=== PATIENT | male | born 1985 | race Caucasian/White ===

== ENCOUNTER 2022-07-28 08:32 | Emergency (ER) | payer MEDICAID ==
[~2022-07-28] VITALS: Ht 167.6 cm; Wt 79.8 kg
--- NOTE | 2022-07-28 08:55 | NUR ---
Pt arrived with c/o chest pain, 01/23 x 4D. Denies n/v, headache. Seen by Dr. Stewart for MSE.
[2022-07-28 08:59] LABS: HEMATOCRIT 47.7 % (36.7-47.1); MEAN CORPUSCULAR HEMOGLOBIN 28.9 uug (23.8-33.4); MEAN CORPUSCULAR VOLUME 86.1 fL (73.0-96.2); PLATELET COUNT (AUTO) 217 K/uL (152-348)
[2022-07-28 09:08] LABS: CARBON DIOXIDE 28 mmol/L (21-32); CHLORIDE 104 mmol/L (98-107); CREATININE 0.7 mg/dL (0.6-1.3); GLUCOSE 115 mg/dL (74-106); POTASSIUM 4.3 mmol/L (3.5-5.1); UREA NITROGEN, BLOOD 16 mg/dL (7-18)
[2022-07-28 09:20] LABS: ALANINE AMINOTRANSFERASE 56 U/L (16-63); ALKALINE PHOSPHATASE 122 U/L (50-136); ASPARTATE AMINOTRANSFERASE 20 U/L (15-37); BILIRUBIN,TOTAL 0.3 mg/dL (0.2-1.0)
--- NOTE | 2022-07-28 09:35 | NUR ---
Called [facility] for [employer]. Gave us phone #[phone] to call the Cardiology, Dr. Koshkaryan. ALEXANDRE made aware.
[2022-07-28] MEDS ORDERED: IBUPROFEN 400 MG TABLET ONE (10:29)
[2022-07-28] MEDS ORDERED: IBUPROFEN 400 MG TABLET PO ONE (10:30)
[2022-07-28] MEDS ORDERED: IBUP-1953 PO (12:21)
[2022-07-28] MEDS ORDERED: KETOROLAC TROMETHAMINE 30 MG INJ ONE (12:21)
[2022-07-28] MEDS ORDERED: KETOROLAC TROMETHAMINE 30 MG INJ IM ONE (12:30)
--- NOTE | 2022-07-28 15:12 | NUR ---
Patient discharged to home in stable condition. Written and verbal after care instructions given. Patient verbalizes understanding of instructions. Stressed follow up or return to ER for worsening s/s.
[2022-07-28 15:17] VITALS: BP 97/41
== END 2022-07-28 15:00 | disposition home or self-care (01) ==
LOC: ER 08:32
DX: R07.9 Chest pain, unspecified (principal)
CPT/HCPCS: 99285; 71045; 80053; 83880; 85025; 85651; 86140; 84484; 36415; 93005; 96372; J1885; A4663

== ENCOUNTER 2023-02-09 22:58 | Emergency (ER) | payer MEDICAID ==
[~2023-02-09] VITALS: Ht 170.2 cm; Wt 79.4 kg
[~2023-02-09 22:58] MED LIST: IBUP-1953 PO
--- NOTE | 2023-02-09 23:45 | NUR ---
Patient ambulated to room #4 with c/o abd pain, denies any nause or vomiting at this time. Informed of plan of care, #20g established in right ac, blood collected and sent to lab, no s/s of any distress noted, will continue to monitor.
[2023-02-09 23:52] LABS: HEMATOCRIT 47.2 % (36.7-47.1); MEAN CORPUSCULAR HEMOGLOBIN 29.8 uug (23.8-33.4); MEAN CORPUSCULAR VOLUME 86.4 fL (73.0-96.2); PLATELET COUNT (AUTO) 205 K/uL (152-348)
[2023-02-10] MEDS ORDERED: IV NORMAL SALINE 1000 ML BAG IV ONE
[2023-02-10 00:09] LABS: BILIRUBIN,DIRECT 0.1 mg/dL (0.0-0.2); BILIRUBIN,TOTAL 0.6 mg/dL (0.2-1.0); CREATININE 0.8 mg/dL (0.6-1.3); POTASSIUM 3.5 mmol/L (3.5-5.1); TOTAL PROTEIN, SERUM 7.6 g/dL (6.4-8.2)
[2023-02-10] MEDS ORDERED: FAMOTIDINE. 20 MG/2 ML VIAL IV ONE ×2 (00:10)
--- NOTE | 2023-02-10 00:28 | NUR ---
Patient medicated as per order, IVF infusing well, will continue to monitor.
--- NOTE | 2023-02-10 02:37 | NUR ---
PATIENT CONTINUE TO REST AWAITING MD RE-EVAL.
--- NOTE | 2023-02-10 02:40 | NUR ---
[facility] SALES AT BEDSIDE.
--- NOTE | 2023-02-10 03:35 | NUR ---
Patient continues to rest without any c/o at this time, will continue to monitor.
--- NOTE | 2023-02-10 04:51 | NUR ---
Patient continues to rest, no voiced c/o pain or discomfort at this time.
--- NOTE | 2023-02-10 06:05 | NUR ---
Patient up to bathroom and back to bed, awaiting MD re-eval.
[2023-02-10] MEDS ORDERED: OMEP40CA21 PO (06:39)
--- NOTE | 2023-02-10 10:48 | NUR ---
Removed IV intact, site okay, bandaged. Gave pt RX and d/c instructions, pt verbalized understanding. Tralslated by ORA.
[2023-02-10 10:53] VITALS: BP 129/71; O2SAT 97
== END 2023-02-10 10:55 | disposition home or self-care (01) ==
LOC: ER 23:05
DX: R10.9 Unspecified abdominal pain (principal); K29.20 Alcoholic gastritis without bleeding; Z79.1 Long term (current) use of non-steroidal anti-inflammatories (NSAID); Z79.899 Other long term (current) drug therapy
CPT/HCPCS: 80076; 80048; 83690; 85025; 36415; 99285; 80320; 76700; 96361; 96374; J3490; J7040 ×2; A4663; G0480